=== PATIENT | male | born 1965 | race Caucasian/White ===

== ENCOUNTER 2016-08-11 16:25 | Outpatient (CLI) | payer BC ==
--- NOTE | 2016-08-11 22:03 | RAD ---
CHEST TWO VIEWS 08/11/16 The heart is normal in size and the lungs are clear. No infiltrate or effusion was seen to suggest p neumonia. The trachea is midline and the mediastinum appears normal. The only area in question was b ehind the heart on the left side very posteriorly if there might be an infiltrate here or not. The f ilm currently cannot confirm a pneumonia here. Should he worsen, then a followup film series to look again at this area might be useful. IMPRESSION: No definite acute findings. See comments above. POS: HOME
== END 2016-08-11 16:26 | disposition home or self-care (01) ==
LOC: BURRAD 16:25
PROVIDERS: ATTEND Physician Assistant
DX: R05 Cough (principal)
CPT/HCPCS: 71020

== ENCOUNTER 2016-11-25 12:01 | Emergency (ER) | payer BC | END 2016-11-25 13:01 | disposition home or self-care (01) | LOC: BURERS 12:01 | DX: M54.12 Radiculopathy, cervical region (principal); F17.200 Nicotine dependence, unspecified, uncomplicated | CPT/HCPCS: 93005 ==

== ENCOUNTER 2023-09-04 15:16 | Emergency (ER) | payer BC ==
[2023-09-04] MEDS ORDERED: Orphenadrine Citrate 60 MG/2 ML VIAL ONE (15:40)
[2023-09-04] MEDS ORDERED: Lidocaine 4% Patch TD SCH (16:00)
[2023-09-05] MEDS ORDERED: Transdermal Patch Removal TOP SCH (04:00)
== END 2023-09-04 16:00 | disposition home or self-care (01) ==
LOC: BURERS 15:16
DX: M54.50 Low back pain, unspecified (principal); F11.23 Opioid dependence with withdrawal; F17.290 Nicotine dependence, other tobacco product, uncomplicated
CPT/HCPCS: 96372; 99283; J2360